=== PATIENT | female | born 1975 | race Caucasian/White ===

== ENCOUNTER 2021-06-17 11:24 | Emergency (ER) | payer OTHER ==
[2021-06-17] MEDS ORDERED: CYCLOBENZAPRINE10 MG PO (12:59)
== END 2021-06-17 13:15 | disposition home or self-care (01) ==
LOC: ER1 11:24
DX: M54.50 Low back pain, unspecified (principal); V43.52XA Car driver injured in collision with other type car in traffic accident, initial encounter; Y92.410 Unspecified street and highway as the place of occurrence of the external cause
CPT/HCPCS: 72131; 96372; 99283; J1885; J2360